=== PATIENT | female | born 1950 | race Caucasian/White ===

== ENCOUNTER 2020-02-25 08:14 | Observation (INO) | payer BC, SELFPAY ==
[~2020-02-25] VITALS: Ht 147.3 cm; Wt 140.2 kg
[2020-02-25 08:15] VITALS: BP_SYST 217
[2020-02-25 08:58] LABS: BASOPHILS # (AUTO) 0.2 K/uL (0.0-0.2); BASOPHILS % (AUTO) 2.2 % (0.0-2.0); EOSINOPHILS # (AUTO) 0.2 K/uL (0.0-0.4); EOSINOPHILS % (AUTO) 2.9 % (0.0-4.0); HEMATOCRIT 41.9 % (36-48); HEMOGLOBIN 14.1 g/dL (12.0-16.0); LYMPHOCYTES % (AUTO) 24.4 % (20.5-51.5); MEAN CORPUSCULAR HEMOGLOBIN 30 pg (27-31); MEAN CORPUSCULAR HGB CONC 34 % (32-36); MEAN CORPUSCULAR VOLUME 90 fL (79.0-98.0); MONOCYTES # (AUTO) 0.5 K/uL (0.0-1.0); MONOCYTES % (AUTO) 6.1 % (1.7-9.3); NEUTROPHILS # (AUTO) 5.4 K/uL (1.8-7.7); NEUTROPHILS % (AUTO) 64.4 % (40.0-70.0); PLATELET COUNT (AUTO) 220 K/uL (130-430); RED BLOOD CELL COUNT(AUTO) 4.67 MIL/uL (4.2-6.2); WHITE BLOOD COUNT (AUTO) 8.4 K/uL (4.8-10.8)
[2020-02-25] MEDS ORDERED: ASPIRIN 81 MG TAB.CHEW PO ONE (09:00)
[2020-02-25] MEDS ORDERED: NITROGLYCERIN 0.4 MG TAB.SUBL SL ONE (09:00)
[2020-02-25 09:14] LABS: ANION GAP 11 (5-15); CALCIUM 9.1 mg/dL (8.4-11.0); CHLORIDE 103 mmol/L (98-107); CREATININE 1.45 mg/dL (0.55-1.30); GLUCOSE 145 mg/dL (70-99); POTASSIUM 4.3 mmol/L (3.5-5.1); SODIUM SERUM 140 mmol/L (136-145); UREA NITROGEN, BLOOD 40 mg/dL (8-21)
[2020-02-25 09:22] LABS: ALANINE AMINOTRANSFERASE 23 U/L (12-78); ALBUMIN 4.1 g/dL (3.4-4.8); ASPARTATE AMINOTRANSFERASE 23 U/L (10-37); LIPASE 173 U/L (73-393); TOTAL BILIRUBIN 0.4 mg/dL (0.0-1.0)
[2020-02-25] MEDS ORDERED: INSU100V9 SQ (10:11)
[2020-02-25] MEDS ORDERED: DILT360T12 PO (10:11)
[2020-02-25] MEDS ORDERED: APIX5TAB PO (10:11)
[2020-02-25] MEDS ORDERED: LEVO112T5 PO (10:11)
[2020-02-25] MEDS ORDERED: LOVA20TA2 PO (10:11)
[2020-02-25] MEDS ORDERED: CARV6.2554 PO (10:11)
[2020-02-25] MEDS ORDERED: FURO-149 PO (10:11)
[2020-02-25] MEDS ORDERED: POTA20TA83 PO (10:11)
[2020-02-25] MEDS ORDERED: LOSA100T3 PO (10:11)
[2020-02-25] MEDS ORDERED: hydrALAZINE HCL 20 MG/ML VIAL IVP ONE (10:30)
[2020-02-25] MEDS ORDERED: FUROSEMIDE 40 MG TABLET PO ONE (11:30)
[2020-02-25] MEDS ORDERED: APIXABAN 2.5 MG TABLET PO ONE (11:30)
[2020-02-25] MEDS ORDERED: LOSARTAN POTASSIUM 50 MG TABLET (COZAAR) PO ONE (11:30)
[2020-02-25] MEDS ORDERED: LEVOTHYROXINE SODIUM 0.112 MG TABLET PO ONE (11:30)
[2020-02-25] MEDS ORDERED: LABETALOL 100 MG/ 20ML VIAL IVP ONE (11:30)
[2020-02-25] MEDS ORDERED: CARVEDILOL 6.25 MG TABLET (COREG) PO ONE (11:30)
[2020-02-25] MEDS ORDERED: DILTIAZEM HCL 180 MG CAP.SR.24H PO ONE (11:30)
[2020-02-25] MEDS ORDERED: INSULIN GLARGINE 100 UNITS/ML 10 ML VIAL SQ ONE (11:30)
[2020-02-25 12:00] VITALS: BP_SYST 151
[2020-02-25 12:09] VITALS: BP_SYST 214
[2020-02-25 12:21] LABS: CHOLESTEROL 165 mg/dL (<200); HDL CHOLESTEROL 64 mg/dL (>55); LDL CHOLESTEROL 84 mg/dL (<100); TRIGLYCERIDES 97 mg/dL (30-150)
[2020-02-25 16:42] VITALS: BP_SYST 137
[2020-02-25] MEDS: ATORVASTATIN 10 MG TABLET PO SCH (17:04)
[2020-02-25 20:00] VITALS: BP_SYST 150
[2020-02-25] MEDS: CARVEDILOL 6.25 MG TABLET (COREG) PO SCH (20:57)
[2020-02-25] MEDS: FUROSEMIDE 40 MG TABLET PO SCH (20:58)
[2020-02-25] MEDS: APIXABAN 2.5 MG TABLET PO SCH (20:59)
[2020-02-26] VITALS: BP_SYST 158
[2020-02-26] MEDS ORDERED: LEVOTHYROXINE SODIUM 0.112 MG TABLET PO SCH (06:30)
[2020-02-26 08:00] VITALS: BP_SYST 160
[2020-02-26] MEDS: APIXABAN 2.5 MG TABLET PO SCH (08:20)
[2020-02-26] MEDS: FUROSEMIDE 40 MG TABLET PO SCH (08:23)
[2020-02-26] MEDS: CARVEDILOL 6.25 MG TABLET (COREG) PO SCH (08:24)
[2020-02-26] MEDS ORDERED: POTASSIUM CHLORIDE 10 MEQ TAB.PRT.SR PO SCH (09:00)
[2020-02-26] MEDS ORDERED: LOSARTAN POTASSIUM 50 MG TABLET (COZAAR) PO SCH (09:00)
[2020-02-26] MEDS ORDERED: INSULIN GLARGINE 100 UNITS/ML 10 ML VIAL SQ SCH (09:00)
[2020-02-26] MEDS ORDERED: ASPIRIN 81 MG TAB.CHEW PO SCH (09:00)
[2020-02-26] MEDS ORDERED: DILTIAZEM HCL 180 MG CAP.SR.24H PO SCH (09:00)
[2020-02-26 10:13] LABS: CHOLESTEROL 147 mg/dL (<200); HDL CHOLESTEROL 59 mg/dL (>55); LDL CHOLESTEROL 72 mg/dL (<100); TRIGLYCERIDES 107 mg/dL (30-150)
[2020-02-26 12:37] VITALS: BP_SYST 153
[2020-02-26 16:09] VITALS: BP_SYST 145
[2020-02-26] MEDS: ATORVASTATIN 10 MG TABLET PO SCH (16:59)
[2020-02-26 18:53] VITALS: BP_SYST 145
== END 2020-02-26 20:05 | disposition home or self-care (01) ==
LOC: SED 08:14 → STU 10:34 → INTOOBSV 10:34 → STU 11:25
PROVIDERS: ADMIT Internal Medicine Hospice and Palliative Medicine; ATTEND Internal Medicine Hospice and Palliative Medicine
DX: R07.89 Other chest pain (principal); Z20.828 Contact with and (suspected) exposure to other viral communicable diseases; I16.0 Hypertensive urgency; I48.0 Paroxysmal atrial fibrillation; I10 Essential (primary) hypertension; E11.9 Type 2 diabetes mellitus without complications; E66.01 Morbid (severe) obesity due to excess calories; R79.89 Other specified abnormal findings of blood chemistry; E78.5 Hyperlipidemia, unspecified; Z90.710 Acquired absence of both cervix and uterus; Z88.0 Allergy status to penicillin; Z79.899 Other long term (current) drug therapy; Z79.01 Long term (current) use of anticoagulants
CPT/HCPCS: 36415 ×2; 71045; 80053; 80061 ×2; 82962 ×2; 83036; 83690; 83880; 84484 ×2; 85025; 87426; 93005; 93306; 96372 ×2; 96374; 99291; G0378; J1815; J3490

== ENCOUNTER 2021-11-22 11:46 | Emergency (ER) | payer BC ==
[~2021-11-22] VITALS: Ht 147.3 cm; Wt 120.2 kg
[~2021-11-22 11:46] MED LIST: APIX5TAB PO; CARV6.2554 PO; DILT360T12 PO; FAMO-279 PO; FAMO20TA8 PO; FURO80TA86 PO; INSU100V SQ; INSU100V9 SQ; LEVO112T5 PO; LOSA100T3 PO; LOVA20TA2 PO; POTA-197 PO
[2021-11-22 11:52] VITALS: BP_SYST 156
--- NOTE | 2021-11-22 11:55 | NUR ---
Patient to ER bed Hallway [address] to [facility] for evaluation. Side rails up. Report given to Lay LINO.
--- NOTE | 2021-11-22 12:10 | NUR ---
Assumed care of patient who was BIBA (BLS) c/o rash behind rt knee that started three days ago. Patient has hx of Type II DM, Afib, ESRD and HTN. VS WNL, patient appears in no acute distress. States leg is not painful but that at times it feels itchy. Patient began to notice a smell and decided to have it seen by a physician. Pt is resting comfortably on gurney in hallway.
--- NOTE | 2021-11-22 12:22 | NUR ---
ER Dr. Melton at bedside examining patient.
[2021-11-22] MEDS ORDERED: KETO60CR2 TP (12:42)
--- NOTE | 2021-11-22 16:32 | NUR ---
sofya, [employer] employment case manager, called back and stated she has to send request to [employer] because she does not authorize transports. stated she will get in contact with [employer] and will call back.
--- NOTE | 2021-11-22 16:39 | NUR ---
Jerrell ramsay in [facility] - 11/22/21 at 1640 by [email or web address] Patient transported to radiology via [facility], accompanied by histologist technologist.
--- NOTE | 2021-11-22 18:04 | NUR ---
Patient awaiting transport by ambulance. Given written and verbal discharge instructions and verbalizes understanding. ER Dr. Montserrat NICHOLSON discussed with patient the results and treatment provided. Patient in stable condition. ID arm band removed. Rx of ketoconazole given. Patient educated on pain management and to follow up with PMD. Pain Scale 0/10. Opportunity for questions provided and answered. Medication side effect fact sheet provided.
--- NOTE | 2021-11-22 19:17 | NUR ---
REPORT GIVEN TO ZOIE SHARP FOR CONTINUING CARE
== END 2021-11-22 18:07 | disposition home or self-care (01) ==
LOC: SED 11:46
DX: B37.2 Candidiasis of skin and nail (principal)
CPT/HCPCS: 82962; 99282